=== PATIENT | male | born 1960 | race Caucasian/White ===

== ENCOUNTER 2016-10-05 14:13 | Emergency (ER) | payer BC, OTHER ==
--- NOTE | 2016-10-05 14:15 | PDOC ---
History of Present Illness - History of Present Illness Initial Comments: 10/05/16 14:39 The patient is a 56 year old male, with a significant past medical history of hypertension (taking lisinopril) and anxiety (taking alprazolam), who presents to the emergency department with increased pain to his left index finger s/p initially injuring his hand 4 days. 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 He denies seeking medical evaluation at the time of injury, but reports feeling immediate pain. He also states he has been working every day since the initial onset of injury despite pain because his company is short staff, but reports he has been taking tylenol 2x daily with significant relief of pain. The patient presents today because he was eating lunch at work when a coworker swatted a sandwich out of his injured hand as he was about to take a bite, inadvertently hitting he injured index finger of his left hand. The patient localized his pain to the knuckle of the left index finger without radiation of pain. He reports the pain was a dull, 2/10 in severity before work , but reports the pain is now an 8/10 in severity since his coworker hit his hand this afternoon. He denies chest pain, shortness of breath, headache and dizziness. He denies fever, chills, nausea, vomit, diarrhea and constipation. He denies dysuria, frequency, urgency and hematuria. Allergies: NKDA Social history: former alcohol use (5 year cessation), denies tobacco use PCP - Dr. Loyd Muniz <Rosalba Samaniego - Last Filed: 10/05/16 14:39> <Felicia Aldridge - Last Filed: 10/05/16 14:49> - General Chief Complaint: Injury Stated Complaint: LEFT HAND INJURY Time Seen by Provider: 10/05/16 14:15 Past History <Rosalba Samaniego - Last Filed: 10/05/16 14:39> - Past Medical History HTN: Yes - Psycho/Social/Smoking Cessation Hx Anxiety: Yes Suicidal Ideation: No Smoking History: Never smoked Have you smoked in the past 12 months: No Hx Alcohol Use: No Drug/Substance Use Hx: No Substance Use Type: None <Felicia Aldridge - Last Filed: 10/05/16 14:49> - Past Medical History Allergies/Adverse Reactions: Allergies Allergy/AdvReac Type Severity Reaction Status Date / Time No Known Allergies Allergy Verified 07/22/15 09:14 Home Medications: Ambulatory Orders Lisinopril [Prinivil] 20 mg PO DAILY 10/05/16 Review of Systems - Review of Systems Able to Perform ROS?: Yes Comments:: 10/05/16 14:39 GENERAL/CONSTITUTIONAL: No fever or chills. No weakness. HEAD, EYES, EARS, NOSE AND THROAT: No change in vision. No ear pain or discharge. No sore throat. CARDIOVASCULAR: No chest pain or shortness of breath. RESPIRATORY: No cough, wheezing, or hemoptysis. GASTROINTESTINAL: No nausea, vomiting, diarrhea or constipation. GENITOURINARY: No dysuria, frequency, or change in urination. MUSCULOSKELETAL: (+) pain to left index finger. No joint or muscle swelling or pain. No neck or back pain. SKIN: No rash NEUROLOGIC: No headache, vertigo, loss of consciousness, or change in strength/ sensation. ENDOCRINE: No increased thirst. No abnormal weight change. HEMATOLOGIC/LYMPHATIC: No anemia, easy bleeding, or history of blood clots. ALLERGIC/IMMUNOLOGIC: No hives or skin allergy. <Rosalba Samaniego - Last Filed: 10/05/16 14:39> *Physical Exam - Vital Signs Last Vital Signs Temp Pulse Resp BP Pulse Ox 98.5 F 87 18 159/106 99 10/05/16 14:14 10/05/16 14:14 10/05/16 14:14 10/05/16 14:14 10/05/16 14:14 <Rosalba Samaniego - Last Filed: 10/05/16 14:39> - Physical Exam Comments: GENERAL: Awake, alert, and fully oriented, in no acute distress HEAD: No signs of trauma EXTREMITIES: L 2nd finger with tenderness at the MCP joint, slight swelling. Pain elicited on ROM of the finger. Cap refill <2s. Slight skin discoloration over the MCP joint in a splotchy white pattern. Remainder of extremities with normal range of motion, no edema. No clubbing or cyanosis. No cords, erythema, or tenderness NEUROLOGICAL: Cranial nerves II through XII grossly intact. Normal speech, normal gait SKIN: Warm, Dry, normal turgor, no rashes or lesions noted. <Felicia Aldridge - Last Filed: 10/05/16 14:49> *DC/Admit/Observation/Transfer - Attestations Scribe Attestion: 10/05/16 14:40 Documentation prepared by Rosalba Samaniego, acting as medical resident for Felicia Aldridge MD, <Rosalba Samaniego - Last Filed: 10/05/16 14:39> - Discharge Dispostion Admit: No <Felicia Aldridge - Last Filed: 10/05/16 14:49> Diagnosis at time of Disposition: Injury of left hand Qualifiers: Encounter type: initial encounter Qualified Code(s): S69.92XA - Unspecified injury of left wrist, hand and finger(s), initial encounter - Discharge Dispostion Disposition: HOME Condition at time of disposition: Stable - Referrals Referrals: Christiano Messer MD [Staff Physician] - - Patient Instructions Printed Discharge Instructions: DI for Hand Injury
[2016-10-05 14:41] VITALS: PULSE 87; TEMP 98.5; BMI 27.1
[2016-10-05] MEDS ORDERED: IBUPROFEN 600 MG TABLET (FP) PO ONE ×2 (14:49→14:54)
[2016-10-05 15:07] VITALS: BP 141/97
== END 2016-10-05 15:23 | disposition home or self-care (01) ==
LOC: FER 14:13
DX: S69.92XA Unspecified injury of left wrist, hand and finger(s), initial encounter (principal); X58.XXXA Exposure to other specified factors, initial encounter; Y93.89 Activity, other specified; Y92.89 Other specified places as the place of occurrence of the external cause; Y99.0 Civilian activity done for income or pay; I10 Essential (primary) hypertension; F41.9 Anxiety disorder, unspecified
CPT/HCPCS: 73130-TC-LT; 99282-25

== ENCOUNTER 2016-10-14 10:50 | Emergency (ER) | payer BC ==
[2016-10-14 10:58] VITALS: BP 140/86; PULSE 82; TEMP 98.3; BMI 27.1
--- NOTE | 2016-10-14 11:10 | PDOC ---
Attending Attestation - Resident Resident Name: PaniaguaShukri - ED Attending Attestation I have performed the following: I have examined & evaluated the patient, The case was reviewed & discussed with the resident, I agree w/resident's findings & plan, Exceptions are as noted - HPI HPI: 10/14/16 11:30 The patient is a 56-year-old male who presents to the emergency department with approximately 24 hours of tingling in both of his hands. He is very specific that it had an insidious onset, and has never gone away. It was much worse during the night, and when he woke up in the morning. He specifically is able to tell me that the tingling as faxed the first 4 fingers, and not the fifth. He denies difficulty speaking, visual deficits, deficits to motor in the extremities, headache. He states that he has sometimes woken up in the morning with similar symptoms. - Physicial Exam PE: 10/14/16 11:30 He is well-appearing and in no acute distress There are no upper or lower extremity motor or sensory deficits He does have subjective paresthesias in the first second third finger, and partially in the fourth finger. The paresthesias do not affect the fifth. Tinel's positive. Phalen's positive. - Medical Decision Making 10/14/16 11:31 He is well-appearing and in no acute distress His symptoms are very consistent with bilateral carpal tunnel syndrome He understands the importance of following up with orthopedics Clinical impression: Bilateral carpal tunnel syndrome I discussed the physical exam findings, ancillary test results and final diagnoses with the patient. I answered all of the patient's questions. The patient was satisfied with the care received and felt comfortable with the discharge plan and treatment plan. The patient will call their primary care physician within 24 hours to arrange follow-up and will return to the Emergency Department with any new, persistent or worsening symptoms. Discharge Disposition - Diagnosis Carpal tunnel syndrome - Discharge Dispostion Disposition: HOME Condition at time of disposition: Stable - Prescriptions Prescriptions: Naproxen [Naprosyn] 500 mg PO BID PRN #20 tablet PRN Reason: Pain - Referrals Referrals: Loyd Muniz MD [Primary Care Provider] - Dov Benton MD [Staff Physician] - Call tomorrow - Patient Instructions Printed Discharge Instructions: DI for Carpal Tunnel Syndrome Additional Instructions: Wear the wrist splints every night Take the naproxen twice daily with food Follow-up with orthopedics Return to the emergency department immediately with ANY new, persistent or worsening symptoms. You MUST call and follow up with your doctor tomorrow. Please make sure your doctor reviews the results of your emergency department evaluation. - Post Discharge Activity Work/School Note: Back to Work
[2016-10-14] MEDS ORDERED: SODIUM CHLORIDE 1,000 ML IV SCH (11:15)
--- NOTE | 2016-10-14 11:44 | PDOC ---
History of Present Illness - General Chief Complaint: CVA/TIA Stated Complaint: NUMBNESS (FINGERS) Time Seen by Provider: 10/14/16 11:08 History Source: Patient Exam Limitations: No Limitations - History of Present Illness Initial Comments: 56 y/o M comes in with complaint of numbness and tingling in B/L finger tips since this morning. He denies any facial droop, arm weakness, difficulty in speaking. Pt is able to speak in complete sentences without difficulty. Denies chest pain, confusion, weakness in body. Past History - Past Medical History Allergies/Adverse Reactions: Allergies Allergy/AdvReac Type Severity Reaction Status Date / Time No Known Allergies Allergy Verified 10/14/16 10:56 Home Medications: Ambulatory Orders Alprazolam 0.25 mg PO DAILY 10/14/16 Lisinopril [Zestril] 30 mg PO DAILY 10/14/16 Diabetes: (borderline) HTN: Yes Hypercholesterolemia: Yes Psychiatric Problems: Yes (anxiety) - Immunization History Immunization Up to Date: Yes - Psycho/Social/Smoking Cessation Hx Anxiety: Yes Suicidal Ideation: No Smoking History: Never smoked Have you smoked in the past 12 months: No Information on smoking cessation initiated: No Hx Alcohol Use: No Drug/Substance Use Hx: No Substance Use Type: None Review of Systems - Review of Systems Able to Perform ROS?: Yes Comments:: CONSTITUTIONAL: Absent: fever, no chills CARDIOVASCULAR: Absent: chest pain, no palpitations RESPIRATORY: Absent: cough, no SOB GI: Absent: abdominal pain, no nausea, no vomiting NEURO:+numbness in tips of fingers Absent: headache *Physical Exam - Vital Signs Last Vital Signs Temp Pulse Resp BP Pulse Ox 98.3 F 82 20 140/86 98 10/14/16 10:56 10/14/16 10:56 10/14/16 10:56 10/14/16 10:56 10/14/16 10:56 - Physical Exam Comments: GENERAL: Well-appearing, well-nourished. No apparent distress. HEENT: Normocephalic, atraumatic. PERRL, EOM intact. CARDIOVASCULAR: Normal S1, S2. Regular rate and rhythm. PULMONARY: Clear to auscultation bilaterally. ABDOMEN: Soft, non-distended, non-tender. EXTREMITIES: Normal ROM in all four extremities. No gross deformities. SKIN: Warm, dry. No rash NEUROLOGICAL: +increased tingling in finger tips mainly sparing pinkys with tinels test No focal neurological deficits. Medical Decision Making - Medical Decision Making Pt with tinels test positive discharged with instructions to f/u w/ortho and night time braces to use for carpal tunnel *DC/Admit/Observation/Transfer Diagnosis at time of Disposition: Carpal tunnel syndrome - Discharge Dispostion Disposition: HOME Condition at time of disposition: Stable - Referrals Referrals: Dov Benton MD [Staff Physician] - Call tomorrow Loyd Muniz MD [Primary Care Provider] - - Patient Instructions Printed Discharge Instructions: DI for Carpal Tunnel Syndrome Additional Instructions: Wear the wrist splints every night Take the naproxen twice daily with food Follow-up with orthopedics Return to the emergency department immediately with ANY new, persistent or worsening symptoms. You MUST call and follow up with your doctor tomorrow. Please make sure your doctor reviews the results of your emergency department evaluation. - Post Discharge Activity Work/School Note: Back to Work
== END 2016-10-14 11:52 | disposition home or self-care (01) ==
LOC: JER 10:50
PROC: 2W3FX1Z Immobilization of Left Hand using Splint (ICD-10-PCS; principal; 2016-10-14)
PROC: 2W3EX1Z Immobilization of Right Hand using Splint (ICD-10-PCS; 2016-10-14)
DX: G56.03 Carpal tunnel syndrome, bilateral upper limbs (principal)
CPT/HCPCS: 71010-TC; 99281-25